=== PATIENT | male | born 1965 | race Caucasian/White ===

== ENCOUNTER 2018-04-08 21:24 | Observation (INO) | payer SELFPAY ==
[2018-04-08] MEDS ORDERED: NS 1,000 ML IV ONE (21:54)
--- NOTE | 2018-04-08 21:56 | EDPHY ---
H & P Stated Complaint: Syncope, elbow laceration Time Seen by Provider: 04/08/18 21:51 HPI/ROS: CHIEF COMPLAINT: Syncope, elbow laceration HISTORY OF PRESENT ILLNESS: Patient is a 53-year-old man who stood up after lying still watching a movie for several hours. He felt lightheaded when he stood up which is not unusual for him. He stumbled into the kitchen when he fell down. He woke up relatively quickly. No seizure-like activity. He is not sure if he hit his head. No scalp lacerations or contusions. He does have a laceration to his left elbow that has significant bleeding. Normal range of motion. He did not even realize he cut his elbow. Paramedics were called. He was A&O x3 by the time they arrived. They noticed a right bundle branch block became concerned. He denies having chest pain before during or after the event. No shortness of breath. No palpitations . Severity: Moderate Modifying factors: None REVIEW OF SYSTEMS: Constitutional: denies: chills, fever, recent illness, recent injury EENTM: denies: blurred vision, double vision, nose congestion Respiratory: denies: cough, shortness of breath Cardiac: See HPI Gastrointestinal/Abdominal: denies: abdominal pain, diarrhea, nausea, vomiting, blood streaked stools Genitourinary: denies: dysuria, frequency, hematuria, pain Musculoskeletal: denies: joint pain, muscle pain Skin: See HPI Neurological: denies: headache, numbness, paresthesia, tingling, dizziness, weakness Hematologic/Lymphatic: denies: blood clots, easy bleeding, easy bruising Immunologic/allergic: denies: HIV/AIDS, transplant 10 systems reviewed and negative except as noted EXAM: GENERAL: Well-appearing, well-nourished and in no acute distress. HEAD: Atraumatic, normocephalic. EYES: Pupils equal round and reactive to light, extraocular movements intact, sclera anicteric, conjunctiva are normal. ENT: TMs normal, nares patent, oropharynx clear without exudates. Moist mucous membranes. NECK: Normal range of motion, supple without lymphadenopathy or JVD. LUNGS: Breath sounds clear to auscultation bilaterally and equal. No wheezes rales or rhonchi. HEART: Regular rate and rhythm without murmurs, rubs or gallops. ABDOMEN: Soft, nontender, normoactive bowel sounds. No guarding, no rebound. No masses appreciated. BACK: No CVA tenderness, no spinal tenderness, step-offs or deformities EXTREMITIES: Left elbow laceration appears to communicate with the bursa. Brisk bleeding. Normal range of motion, no pitting or edema. No clubbing or cyanosis. NEUROLOGICAL: Cranial nerves II through XII grossly intact. Normal speech, normal gait. 5/5 strength, normal movement in all extremities, normal sensation , normal reflexes PSYCH: Normal mood, normal affect. SKIN: Warm, dry, normal turgor, no visible rashes or lesions. Source: Patient, EMS Exam Limitations: No limitations - Personal History Current Tetanus Diphtheria and Acellular Pertussis (TDAP): No - Medical/Surgical History Hx Asthma: No Hx Chronic Respiratory Disease: No Hx Diabetes: No Hx Cardiac Disease: No Hx Renal Disease: No Hx Cirrhosis: No Hx Alcoholism: No Hx HIV/AIDS: No Hx Splenectomy or Spleen Trauma: No Other PMH: denies - Family History Significant Family History: No pertinent family hx - Social History Smoking Status: Never smoked Alcohol Use: Occasionally Drug Use: None Constitutional: Initial Vital Signs Temperature (C) 36.6 C 04/08/18 21:29 Heart Rate 66 04/08/18 21:29 Respiratory Rate 18 04/08/18 21:29 Blood Pressure 130/74 H 04/08/18 21:29 O2 Sat (%) 96 04/08/18 21:29 O2 Delivery Mode Room Air Allergies/Adverse Reactions: No Known Allergies Allergy (Unverified 04/08/18 21:31) Home Medications: Medication Instructions Recorded Fluticasone Nasal [Flonase Nasal 1 sprays NASAL DAILY PRN 04/09/18 Cannon] Ibuprofen [Motrin (*)] 600 mg PO Q8 PRN 04/09/18 Loratadine/Pseudoephedrine 1 each PO DAILY PRN 04/09/18 [Claritin-D 24 Hour Tablet] Medical Decision Making - Diagnostics EKG Interpretation: An EKG obtained and was read and documented in trace view. Please see trace view for full reading and report. Sinus rhythm, right bundle branch block with appropriate repolarization abnormality, no acute ischemic changes Procedures: Procedure: Laceration repair. Verbal consent was obtained from the patient. The 1 cm left elbow laceration was anesthetized with 1% lidocaine with epi and bicarbonate locally infiltrated. The wound was irrigated copiously according to protocol, draped and explored to its base. It was approximately 1/2 cm deep but does involve the bursa space. No tendon, nerve, or vascular injury was identified when explored through full range of motion. No foreign body was identified. The wound was repaired with 5.0 Prolene, 2 sutures, interrupted. The wound repair was simple without wound margin revisement or multiple flap alignment. The procedure was performed by myself. A dressing was then placed with sterile gauze and bacitracin. ED Course/Re-evaluation: 10:30 p.m. patient is doing well. No chest pain, shortness of breath or lightheadedness. He tolerated suture repair. I recommended admission for monitoring and echocardiogram tomorrow because of his right bundle branch block. We do not know if this is new or old. I do not think that it represents acute infarction. The patient understands and agrees with this plan. Spoke with Dr. Peres who will admit to the medical service. Differential Diagnosis: Partial list of the Differential diagnosis considered include but were not limited to; syncope, arrhythmia, block, elbow laceration and although unlikely based on the history and physical exam, I also considered head injury electrolyte abnormality, infection, seizure. - Data Points Laboratory Results: Laboratory Results 04/08/18 21:35 04/08/18 21:35 Medications Given: Discontinued Medications Acetaminophen (Tylenol) 650 mg PO Q4HRS PRN PRN Reason: Pain, Mild/Fever, Can Take PO Stop: 10/05/18 22:40 Last Admin: 04/09/18 11:35 Dose: 650 mg Enoxaparin Sodium (Lovenox) 40 mg SC DAILY [facility] Stop: 10/06/18 08:59 Last Admin: 04/09/18 11:36 Dose: Not Given Sodium Chloride (Ns) 1,000 mls @ 0 mls/hr IV EDNOW ONE; Wide Open PRN Reason: Protocol Stop: 04/08/18 21:55 Last Admin: 04/08/18 22:00 Dose: 1,000 mls Point of Care Test Results: Chemistry 04/08/18 21:34 POC Troponin I 0.02 ng/mL ng/mL (0.00-0.08) Departure - Departure Disposition: [facility] Clinical Impression: Syncope and collapse, Right bundle branch block Laceration of left elbow Qualifiers: Encounter type: initial encounter Qualified Code(s): S51.012A - Laceration without foreign body of left elbow, initial encounter Condition: Good
[2018-04-08 22:01] LABS: PLATELET COUNT 239 10^3/uL (150-400)
[2018-04-08] MEDS ORDERED: ACETAMINOPHEN 325 MG TAB PO PRN (22:41)
[2018-04-08] MEDS ORDERED: ONDANSETRON 4 MG/2 ML VIAL IVP PRN (22:41)
[2018-04-08] MEDS ORDERED: ONDANSETRON DISINTEGRATING 4 MG TAB PO PRN (22:41)
--- NOTE | 2018-04-09 01:32 | PDGENHP ---
History and Physical - Chief Complaint Syncope - History of Present Illness 53 yo m w/ minimal PMHx presents after syncopal episode. The patient was sitting low in a park bag chair watching a movie. He stood up and became very lightheaded. He walked a few steps and then lost consciousness. He is not sure how long he was unconscious but thinks it was only a few seconds. He fell onto his L elbow and had some bleeding. He was dazed afterwards and thinks it took him a few minutes to regain normal cognition. This has never happened before. He went on a 1 hr bike ride earlier in the day and possibly did not drink enough water. However, he rides his bike often and he says this was a short bike ride for him. He denies chest pain or palpitations before or after the episode. He is currently asymptomatic, In the ED his evaluation was unremarkable aside from abnormal ECG. ECG demonstrated bifascicular block. He denies any knowledge of personal cardiac problems. Case discussed with ED physician Dr. Argueta; records reviewed and summarized above. History Information - Allergies/Home Medication List Allergies/Adverse Reactions: No Known Allergies Allergy (Unverified 04/08/18 21:31) Home Medications: Flonase Allergy Relief 04/08/18 [Last Taken Unknown] I have personally reviewed and updated: family history, medical history - Past Medical History no pertinent PMH - Surgical History Additional surgical history: R shoulder surgery - Family History Positive for: CAD (Mother had WI) - Social History Smoking Status: Never smoked Alcohol Use: Occasionally Drug Use: None Review of Systems Review of Systems: ROS: 10pt was reviewed & negative except for what was stated in HPI & below Physical Exam Physical Exam: Temp Pulse Resp BP Pulse Ox 36.8 C 53 L 14 106/59 L 88 L 04/08/18 23:53 04/08/18 23:53 04/08/18 23:53 04/08/18 23:53 04/08/18 23:53 Constitutional: no apparent distress, not in pain Eyes: PERRL, EOMI Ears, Nose, Mouth, Throat: moist mucous membranes, no oral mucosal ulcers Cardiovascular: regular rate and rhythym, no murmur, rub, or gallop Respiratory: no respiratory distress, clear to auscultation Gastrointestinal: normoactive bowel sounds, soft, non-tender abdomen Skin: warm, other (L elbow abrasion) Musculoskeletal: full muscle strength, no muscle tenderness Neurologic: AAOx3, CN II-XII Intact Psychiatric: interacting appropriately, not anxious Lab Data & Imaging Review 04/08/18 21:35 04/08/18 21:35 WBC 14.49 10^3/uL (3.80-9.50) H 04/08/18 21:35 RBC 4.93 10^6/uL (4.40-6.38) 04/08/18 21:35 Hgb 15.1 g/dL (13.7-17.5) 04/08/18 21:35 Hct 44.1 % (40.0-51.0) 04/08/18 21:35 MCV 89.5 fL (81.5-99.8) 04/08/18 21:35 MCH 30.6 pg (27.9-34.1) 04/08/18 21:35 MCHC 34.2 g/dL (32.4-36.7) 04/08/18 21:35 RDW 13.4 % (11.5-15.2) 04/08/18 21:35 Plt Count 239 10^3/uL (150-400) 04/08/18 21:35 MPV 10.4 fL (8.7-11.7) 04/08/18 21:35 Neut % (Auto) 41.2 % (39.3-74.2) 04/08/18 21:35 Lymph % (Auto) 51.8 % (15.0-45.0) H 04/08/18 21:35 Dillon % (Auto) 4.8 % (4.5-13.0) 04/08/18 21:35 Eos % (Auto) 1.3 % (0.6-7.6) 04/08/18 21:35 Baso % (Auto) 0.6 % (0.3-1.7) 04/08/18 21:35 Nucleat RBC Rel Count 0.0 % (0.0-0.2) 04/08/18 21:35 Absolute Neuts (auto) 5.97 10^3/uL (1.70-6.50) 04/08/18 21:35 Absolute Lymphs (auto) 7.51 10^3/uL (1.00-3.00) H 04/08/18 21:35 Absolute Monos (auto) 0.70 10^3/uL (0.30-0.80) 04/08/18 21:35 Absolute Eos (auto) 0.19 10^3/uL (0.03-0.40) 04/08/18 21:35 Absolute Basos (auto) 0.09 10^3/uL (0.02-0.10) 04/08/18 21:35 Absolute Nucleated RBC 0.00 10^3/uL (0-0.01) 04/08/18 21:35 Immature Gran % 0.3 % (0.0-1.1) 04/08/18 21:35 Immature Gran # 0.04 10^3/uL (0.00-0.10) 04/08/18 21:35 RBC/WBC/PLT Morphology TNP 04/08/18 21:35 Platelet Estimate TNP 04/08/18 21:35 D-Dimer < 0.27 ug/mLFEU (0.00-0.50) 04/08/18 22:00 Sodium 142 mEq/L (135-145) 04/08/18 21:35 Potassium 4.3 mEq/L (3.3-5.0) 04/08/18 21:35 Chloride 100 mEq/L (97-110) 04/08/18 21:35 Carbon Dioxide 28 mEq/l (22-31) 04/08/18 21:35 Anion Gap 14 mEq/L (6-14) 04/08/18 21:35 BUN 24 mg/dL (7-23) H 04/08/18 21:35 Creatinine 1.2 mg/dL (0.7-1.3) 04/08/18 21:35 Estimated GFR > 60 04/08/18 21:35 Glucose 100 mg/dL (70-100) 04/08/18 21:35 Calcium 9.8 mg/dL (8.5-10.4) 04/08/18 21:35 POC Troponin I 0.02 ng/mL (0.00-0.08) 04/08/18 21:34 Visualized and Interpreted EKG results: Yes EKG Interpretation: Positive for: normal sinsus rhythm, other (Bifascicular block) Assessment & Plan Assessment: 53 yo M w/ minimal PMHx presents after syncopal episode and found to have abnormal ECG. Plan: 1. Syncope - Most likely orthostatic syncope noting it occurred after going from sitting to standing. No post-ictal confusion to suggest seizure. ECG ( personally reviewed/interpreted) does demonstrated bifascicular block so reasonable to further investigate this. - Admit for observation - Monitor on telemetry - Obtain TTE noting abnormal ECG 2. Bifascicular block - No prior cardiac history, he exercises routinely without issues. - TTE as above Diet - Regular Code - Full Ppx - LMWH Dispo - Admit under observation status
[2018-04-09 04:49] LABS: PLATELET COUNT 197 10^3/uL (150-400)
[2018-04-09] MEDS ORDERED: ENOXAPARIN 40 MG/0.4 ML SYR SC SCH (09:00)
--- NOTE | 2018-04-09 11:30 | ECHO ---
[email or web address] [address] [address] Main: [phone] Fax: Transthoracic Echocardiogram Name: ES GAONA MR#: [id number] Study Date: 04/09/2018 Study Time: 07:09 AM Date of : 1965 Age: 53 year(s) Height: 182.9 cm (72 in.) Weight: 65.77 kg (145 lb.) BSA: 1.86 m2 Gender: Male Examination: Echo Indication: Syncope/Abnormal EKG Image Quality: Excellent Contrast: Requested by: Joe Kitchen BP: 97 mmHg/52 mmHg Heart Rate: Rhythm: Indication: Syncope/Abnormal EKG Procedure Staff Oil Pipeline Operator: Carmella Carbajal RDCS Reading Physician: Kalpesh Valladares MD Requesting Provider: Conclusions: 1)Normal LV size and systolic function with a LVEF of 63% and normal wall motions 2)Borderline left atrial enlargement noted. 3)Trivial MR without MV prolapse. 4)Trivial TR noted. note: no previous echo reports to compare to. Measurements: Chambers Valvular Assessment AV/MV Valvular Assessment TV/PV Normal Normal Normal Name Value Range Name Value Range Name Value Range Ao Kelsy (MM): 3.6 cm (2.2 cm-3.7 AV Vmax: 1.32 m/s (1 m/s-1.7 cm) m/s) IVSd (2D): 0.7 cm (0.6 cm-1.1 AV meanP mmHg ( - ) cm) MV E Vmax: 0.82 m/s ( - ) LVDd (2D): 5.6 cm (4.2 cm-5.9 MV A Vmax: 0.50 m/s ( - ) cm) MV E/A: 1.64 ( - ) LVDs (2D): 3.1 cm (2.1 cm-4 cm) LVPWd (2D): 0.9 cm (0.6 cm-1 cm) LVEF (MOD4): 63 % (>=55 %) EF Range: 60-65 % Continued Measurements: Chambers Valvular Assessment AV/MV Name Value Name Value LADs: 3.4 cm MV E' Septal: 0.11 m/s LADs Lon.4 cm MV E/E' Septal: 7.50 Patient: ES GAONA Study Date: 04/09/2018 Page 1 of 2 07:09 AM LA Area: 20.0 cm2 MV E/E' Lateral: 3.50 Findings: Left Ventricle: Normal size left ventricle. No LV hypertrophy. Normal global systolic LV function. The ejection fraction is estimated to be 60-65 %. Normal diastolic LV function. LV base inferior wall appears aneurysmal but demonstrates normal motion. All remaining segments have normal motion.. Right Ventricle: Normal size right ventricle. Left Atrium: The left atirum is borderline dilated. Right Atrium: The right atrium is normal in size. Mitral Valve: The mitral valve is normal in appearance and function. Trivial mitral valve regurgitation. Aortic Valve: The aortic valve is normal in appearance and function. There is no aortic valve regurgitation. Tricuspid Valve: The tricuspid valve is normal in appearance and function. Trivial tricuspid valve regurgitation. Pulmonic Valve: The pulmonic valve is normal in appearance and function. Aorta: The aorta is normal. Pericardium: No pericardial effusion. (No Signature Object) Patient: ES GAONA Study Date: 04/09/2018 Page 2 of 2 07:09 AM [id number]
[2018-04-09 12:56] VITALS: BP 107/72
--- NOTE | 2018-04-09 17:52 | ASDISCHSUM ---
Discharge Information Plan Status:Home with No Needs Medically Cleared to Leave:04/08/2018 Discharge Date:04/09/2018 12:59 PM CM D/C Disposition:Home, Routine, Self-Care ADT D/C Disposition:Home, Routine, Self-Care Projected Discharge Date:04/09/2018 12:00 AM Transportation at D/C: Discharge Delay Reason: Follow-Up Date:04/09/2018 12:00 AM Discharge Slot: Final Diagnosis: Placement Information Patient Contact Information Contact Name:GABRIEL Relationship: Address:[address] Work Phone: City:[place] Alternate Phone: [facility] [address]/Zip Code:[place] [address] Email: Financial Information Financial Class:HMO and PPO Plans Primary Plan Desc:BRISA PPO POS HMO SIG ADM Primary Plan Number:[id number] Secondary Plan Desc: Secondary Plan Number: Assessment Information Case Management Discharge Plan Note Case Management Discharge Discharge Order Complete? Answers: Yes Patient to Obtain Answers: via Family Medications Transportation Arranged Answers: Family/Friends Transport will Pick (Date 04/09/2018 12:00 AM & Time) Family Notified Answers: Yes Discharge Comments Notes: Patient has been discharged -no needs. Date Signed: 04/09/2018 05:50 PM Electronically Signed By:Gabrielle Ellis LCSW Intervention Information
--- NOTE | 2018-04-09 22:44 | GDS ---
DISCHARGE DIAGNOSES: 1. Syncope, suspect due to hypovolemia. 2. Bifascicular block. HISTORY: Isai is a 53-year-old male who presents with a syncopal event. He was sitting in a low beanbag watching a movie, sat up very quickly, became lightheaded and then had a jimenez syncopal event with an elbow laceration. He was unconscious for a few seconds. It did take a few more minutes to fully regain normal mental status. His called 911. Although the event was not witnessed, she w as at his side within seconds when she heard him fall. There was no witnessed seizure activity. In the emergency room his EKG showed a bifascicular block. This prompted admission to observation fo r further evaluation. Echocardiogram was within normal limits. I did discuss this case with Dr. Quinn Valladares of Cardiology. Although we do believe the current presentation was due to hypovolemia, his underlying bifascicular block does put him at increased risk for bradyarrhythmias in the future. Card iology would like to see him in the office for close followup, where they will initiate outpatient Ho lter monitoring and long-term management of his bifascicular block. He does not need a pacemaker at this time. DISCHARGE MEDICATIONS: Please see computerized record for full detailed list. NEW MEDICATIONS: There are no new medications given at the time of hospital discharge. ADDITIONAL DISCHARGE INSTRUCTIONS: 1. [facility] will call you tomorrow morning to arrange appointment for Cardiology followup. 2. Suture removal to the left elbow in 7-10 days. Patient was seen and examined by me on the day of discharge. /[id number]/MODL
--- NOTE | 2018-04-12 14:19 | CPEKG ---
Test Reason : OPEN Blood Pressure : / mmHG Vent. Rate : 068 BPM Atrial Rate : 068 BPM P-R Int : 153 ms QRS Dur : 132 ms QT Int : 443 ms P-R-T Axes : 062 -63 024 degrees QTc Int : 472 ms Sinus rhythm Probable left atrial enlargement RBBB and LAFB ST elev, probable normal early repol pattern Confirmed by Arsenio Argueta ([id number]) on 04/12/2018 2:18:48 PM Referred By: Confirmed By:Arsenio Argueta
== END 2018-04-09 12:59 | disposition home or self-care (01) ==
LOC: F2W 23:44
PROVIDERS: ADMIT Student in an Organized Health Care Education/Training Program; ATTEND Internal Medicine
PROC: 0HQCXZZ Repair Left Upper Arm Skin, External Approach (ICD-10-PCS; principal; 2018-04-08)
DX: R55 Syncope and collapse (principal); I45.2 Bifascicular block; S51.012A Laceration without foreign body of left elbow, initial encounter; W01.0XXA Fall on same level from slipping, tripping and stumbling without subsequent striking against object, initial encounter; Y92.000 Kitchen of unspecified non-institutional (private) residence as the place of occurrence of the external cause; Y93.9 Activity, unspecified; E86.0 Dehydration
CPT/HCPCS: 84484-PO; G0378